=== PATIENT | female | born 1970 | race Hispanic/Latino ===

== ENCOUNTER 2024-12-11 06:48 | Day surgery (SDC) | payer MEDICAID ==
[~2024-12-11] VITALS: Ht 165.1 cm; Wt 149.7 kg
[2024-12-11] VITALS (10 sets, daily range): BP systolic 109–134; BP diastolic 46–74; PULSE 57–68; RESP 15–20; TEMP 97.4–97.9
[~2024-12-11 06:48] MED LIST: 0.9%NACL 1000ML 1,000 ML IV ONE
[2024-12-11] MEDS ORDERED: ESOM40CA66 PO (07:28)
[2024-12-11] MEDS ORDERED: IBUP-2071 PO (07:28)
[2024-12-11] MEDS ORDERED: LISI10TA24 PO (07:28)
[2024-12-11] MEDS ORDERED: FLUT15.845 NS (07:28)
[2024-12-11] MEDS ORDERED: ACET500C51 PO (07:28)
[2024-12-11] MEDS ORDERED: FAMO40TA7 PO (07:28)
[2024-12-11] MEDS ORDERED: FLUT1BLS15 IH (07:28)
[2024-12-11] MEDS ORDERED: GABA-529 PO (07:28)
[2024-12-11] MEDS ORDERED: MONT-39 PO (07:28)
[2024-12-11] MEDS ORDERED: CALC-866 PO (07:28)
[2024-12-11] MEDS ORDERED: METF-444 PO (07:28)
[2024-12-11] MEDS ORDERED: ALBU18HF7 IH (07:28)
[2024-12-11] MEDS ORDERED: LINZESS PO (07:28)
[2024-12-11] MEDS ORDERED: LEVO5TAB13 PO (07:28)
[2024-12-11] MEDS ORDERED: ATOR20TA65 PO (07:28)
== END 2024-12-11 10:10 | disposition home or self-care (01) ==
LOC: DAH 06:48 → ENDO 06:48
PROVIDERS: ATTEND Internal Medicine Gastroenterology
DX: B37.81 Candidal esophagitis (principal); K29.50 Unspecified chronic gastritis without bleeding; K31.89 Other diseases of stomach and duodenum; K31.7 Polyp of stomach and duodenum; R93.3 Abnormal findings on diagnostic imaging of other parts of digestive tract; I10 Essential (primary) hypertension; J45.909 Unspecified asthma, uncomplicated; E66.01 Morbid (severe) obesity due to excess calories; E11.9 Type 2 diabetes mellitus without complications; E78.00 Pure hypercholesterolemia, unspecified; K31.84 Gastroparesis; K76.0 Fatty (change of) liver, not elsewhere classified; K59.04 Chronic idiopathic constipation; Z90.49 Acquired absence of other specified parts of digestive tract; Z68.38 Body mass index [BMI] 38.0-38.9, adult; Z90.710 Acquired absence of both cervix and uterus; Z79.84 Long term (current) use of oral hypoglycemic drugs; Z79.899 Other long term (current) drug therapy
CPT/HCPCS: 43251; 82948 ×2; 43239; J7030; J2704; A4620; A4215; A4223; A4222; A4606; J3490